=== PATIENT | female | born 1960 | race Caucasian/White ===

== ENCOUNTER 2018-10-03 18:08 | Emergency (ER) | payer OTHER, MEDICARE ==
[~2018-10-03] VITALS: Ht 157.5 cm; Wt 43.1 kg
[~2018-10-03 18:08] MED LIST: LIB25C PO
[2018-10-03 18:18] VITALS: BP 127/88
== END 2018-10-03 21:11 | disposition left against medical advice (07) ==
LOC: ER 18:09
DX: J02.9 Acute pharyngitis, unspecified (principal); Z53.21 Procedure and treatment not carried out due to patient leaving prior to being seen by health care provider

== ENCOUNTER 2019-07-15 15:04 | Outpatient (CLI) | payer OTHER | END 2019-07-15 23:59 | disposition home or self-care (01) | LOC: RAD 15:04 | PROVIDERS: ATTEND Student in an Organized Health Care Education/Training Program | DX: R13.10 Dysphagia, unspecified (principal) | CPT/HCPCS: 74230 ==

== ENCOUNTER 2019-10-05 11:41 | Day surgery (SDC) | payer OTHER, MEDICARE ==
[~2019-10-05] VITALS: Ht 157.5 cm; Wt 89.6 kg
[2019-10-05 12:00] VITALS: BP 102/84
[2019-10-05] MEDS ORDERED: normal saline 1000ml 1,000 ML IV PRN (12:15)
[2019-10-05] MEDS ORDERED: IXEK80AU2 (12:30)
[2019-10-05] MEDS ORDERED: NALO4SPR (12:30)
[2019-10-05] MEDS ORDERED: PILO5TAB10 (12:30)
[2019-10-05] MEDS ORDERED: BUSP30TA3 PO (12:30)
[2019-10-05] MEDS ORDERED: HYDR-3972 PO (12:30)
[2019-10-05] MEDS ORDERED: LOSA25TA41 (12:30)
[2019-10-05] MEDS ORDERED: MORP15TA PO (12:30)
[2019-10-05] MEDS ORDERED: LIDO20SO24 (12:30)
[2019-10-05] MEDS ORDERED: MIRT15TA8 PO (12:30)
[2019-10-05] MEDS ORDERED: GABA300C PO (12:30)
[2019-10-05] MEDS ORDERED: TRAZ-256 (12:30)
[2019-10-05] MEDS ORDERED: ARIP2TAB20 PO (12:30)
[2019-10-05] MEDS ORDERED: PARO30TA4 PO (12:30)
[2019-10-05] MEDS ORDERED: LIDOcaine/PRILOcaine 5gm cream TP ONE ×2 (12:35)
[2019-10-05] MEDS ORDERED: ceFAZolin 2gm in dextrose, iso 50 ML IV ONE (13:40)
[2019-10-05] MEDS ORDERED: midazolam 2 mg/2 ml injection ONE (14:32)
[2019-10-05] MEDS ORDERED: glucagon, human recombinant 1mg kit ONE (14:32)
[2019-10-05] MEDS ORDERED: LIDOcaine 1%/PF 5ML 10 MG/ML VIAL ONE (14:33)
[2019-10-05] MEDS ORDERED: fentaNYL/PF 50MCG/1 ML 2ML syringe ONE (14:33)
[2019-10-05] MEDS ORDERED: iohexol 300 MG/1 ML 50ml polymer ONE (14:34)
[2019-10-05] MEDS ORDERED: diatr meglu/diatrizoate 30ml oral sol.-(3 dose) bottle PO ONE (14:55)
[2019-10-05] MEDS ORDERED: heparin sodium, porcine/PF 100unit/ml 5ML syringe IV ONE (15:00)
--- NOTE | 2019-10-05 16:14 | NUR ---
[facility] team unable to visualize stomach, Gastroview given per Dr. Costa's orders. Pt to be rescheduled for 10/06/2019.
[2019-10-05 16:25] VITALS: BP 136/87
== END 2019-10-05 16:25 | disposition home or self-care (01) ==
LOC: SSTAY O 11:41
PROVIDERS: ATTEND Radiology Vascular & Interventional Radiology
DX: C15.4 Malignant neoplasm of middle third of esophagus (principal); Z53.8 Procedure and treatment not carried out for other reasons; F32.9 Major depressive disorder, single episode, unspecified; M19.90 Unspecified osteoarthritis, unspecified site; Z85.810 Personal history of malignant neoplasm of tongue
CPT/HCPCS: J1610; J2250; J3010; J7030; Q9963; Q9967; 49440

== ENCOUNTER 2019-10-06 11:42 | Day surgery (SDC) | payer OTHER, MEDICARE ==
[~2019-10-06] VITALS: Ht 157.5 cm; Wt 40.4 kg
[2019-10-06] VITALS (7 sets, daily range): BP systolic 92–130; BP diastolic 64–84
[~2019-10-06 11:42] MED LIST changes: +ARIP2TAB20 PO; +BUSP30TA3 PO; +GABA300C PO; +HYDR-3972 PO; +IXEK80AU2; -LIB25C PO; +LIDO20SO24; +LOSA25TA41; +MIRT15TA8 PO; +MORP15TA PO; +NALO4SPR; +PARO30TA4 PO; +PILO5TAB10; +TRAZ-256
[2019-10-06] MEDS ORDERED: normal saline 1000ml 1,000 ML IV SCH (12:10)
[2019-10-06] MEDS ORDERED: LIDOcaine/PRILOcaine 5gm cream TP ONE (12:10)
[2019-10-06] MEDS ORDERED: cefazolin/dext.iso 2gm/100ml 100 ML IV ONE (12:15)
[2019-10-06] MEDS ORDERED: heparin sodium, porcine/PF 100unit/ml 5ML syringe IV ONE (14:25)
[2019-10-06] MEDS ORDERED: fentaNYL/PF 50MCG/1 ML 2ML syringe ONE ×2 (14:27→14:51)
[2019-10-06] MEDS ORDERED: LIDOcaine 1%/PF 5ML 10 MG/ML VIAL ONE (14:27)
[2019-10-06] MEDS ORDERED: glucagon, human recombinant 1mg kit ONE (14:27)
[2019-10-06] MEDS ORDERED: midazolam 2 mg/2 ml injection ONE ×2 (14:27→14:51)
[2019-10-06] MEDS ORDERED: iohexol 300 MG/1 ML 50ml polymer ONE (14:50)
== END 2019-10-06 17:20 | disposition home or self-care (01) ==
LOC: SSTAY O 11:42
PROVIDERS: ATTEND Radiology Diagnostic Radiology
DX: C15.4 Malignant neoplasm of middle third of esophagus (principal); Z79.899 Other long term (current) drug therapy
CPT/HCPCS: 49440; 99152; 99153; J1610; J1642; J2250; J3010; J7030; Q9967; B4087